=== PATIENT | female | born 1995 | race African-American/Black ===

== ENCOUNTER 2023-07-17 22:56 | Emergency (ER) | payer OTHER, MEDICAID, SELFPAY ==
--- NOTE | ~2023-07-17 | XR_ITS ---
EXAMINATION: XR foot LT min 3V DATE: 07/17/2023 23:22 INDICATION: Pain across the toes of the left foot after being pinned with a forklift TECHNIQUE: Dorsoplantar, two oblique and lateral views of the left foot were obtained. COMPARISON: None. FINDINGS: There is bandaging material about the dose of the left foot. Age-indeterminate mildly displaced small fracture fragment at the medial side of the tuft of the left first distal phalanx. Bone alignment is otherwise normal. No other fractures identified. Joint spaces are normal. IMPRESSION: 1. Age-indeterminate mildly displaced fracture at the medial side of the tuft of the left great toe. If this is acute and there is an associated nailbed injury this would be considered equivalent of an open/compound fracture at increased risk of infection. Reviewed, dictated and finalized at location A. [facility] IMPRESSION: 1. Age-indeterminate mildly displaced fracture at the medial side of the tuft o f the left great toe. If this is acute and there is an associated nailbed injur y this would be considered equivalent of an open/compound fracture at increased risk of infection.
[2023-07-17 22:56] VITALS: BP 157/105; PULSE 85; O2SAT 100
[2023-07-17 22:58] VITALS: BP 152/105; PULSE 90; RESP 20; TEMP 36.8; O2SAT 100
[2023-07-17 23:15] VITALS: BP 160/102; PULSE 94; O2SAT 100
[2023-07-17] MEDS: TETANUS,DIPHTHERIA,AC PERTUSSIS ADULT (0.5 ML) BOOSTRIX IM (23:18)
[2023-07-17] MEDS: HYDROmorphone HCL INJ (*CRX) 1 MG/ML SYR IV PUSH ×2 (23:18→23:58)
[2023-07-17] MEDS: ceFAZolin 2 GM/D5W 50 ML 2 GM/50 ML BAG IVPB (23:19)
--- NOTE | 2023-07-17 23:22 | PC.NURSE ---
This RN assumed care of patient. This RN took patient report from VIRAJ Huerta.
[2023-07-17 23:27] LABS: Basophils Percent Auto 0.7 % (0.2-1.2); Eosinophils Percent Auto 0.7 % (0-4.4); Hemoglobin 11.5 g/dL (12.0-15.0); Immature Granulocyte Absolute 0.01 K/mm3 (0.00-0.031); Immature Granulocyte Percent A 0.2 % (0-0.5); Lymphocytes Absolute Auto 2.03 K/mm3 (0.9-3.2); Lymphocytes Percent Auto 46.9 % (18.3-44.2); Mean Corpuscular HGB Conc 31.1 g/dl (32-36); Mean Corpuscular Hemoglobin 27.4 pg (26-34); Mean Corpuscular Volume 88.3 fl (80-100); Mean Platelet Volume 9.4 fl (7.4-10.4); Monocytes Absolute Auto 0.3 K/mm3 (0.1-0.6); Monocytes Percent Auto 6.5 % (2.6-8.5); Platelet Count Result 198 k/mm3 (150-375); Red Blood Count 4.19 M/mm3 (4.2-5.4); White Blood Count 4.3 K/mm3 (4.5-10.0)
[2023-07-17 23:48] VITALS: BP 141/94; PULSE 67; O2SAT 100
--- NOTE | 2023-07-18 00:16 | ED.GENADULT ---
HPI - General Adult General Chief complaint: Extremity Problem,Nontraumatic Stated complaint: foot injury Time Seen by Provider: 07/17/23 23:06 History of Present Illness HPI narrative: patient 28-year-old female who presents emerged from with chief complaint of left foot injury. 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 Related Data Allergies Allergy/AdvReac Type Severity Reaction Status Date / Time Sulfa (Sulfonamide AdvReac Rash Verified 07/17/23 23:11 Antibiotics) Review of Systems Review of Systems: A 10 system review of systems was completed on the patient and is negative except for what is stated in the HPI. Nursing and ancillary documentation was reviewed. Exam Narrative: GENERAL: Well-appearing, well-nourished, and in no acute distress. HEAD: Normocephalic, atraumatic. EYES: PERRLA and EOMI. ENT: Nares clear, no rhinorrhea or epistaxis. Mucous membranes moist. NECK: Supple. CHEST: Clear to auscultation. No respiratory distress. HEART: Regular rate and rhythm. No murmur heard. Normal peripheral pulses. ABDOMEN: Soft, nontender, nondistended, normal active bowel sounds. EXTREMITIES: Normal range of motion. No edema. SKIN: Warm, dry, no rash. Multiple lacerations at the base of the 1st 2nd 3rd and 4th digit of the left foot there is a laceration to the webspace between the 1st and 2nd digit and 2nd and 3rd digit NEURO: No focal deficits. Alert and oriented x3. PSYCH: Normal mood and affect. Course Vital Signs Vital signs: Vital Signs Pulse Rate 85 07/17/23 22:56 Blood Pressure 157/105 H 07/17/23 22:56 Pulse Oximetry 100 07/17/23 22:56 Temperature 36.8 C 07/17/23 22:58 Pulse Rate 67 07/17/23 23:48 Respiratory Rate 20 07/17/23 22:58 Blood Pressure 141/94 H 07/17/23 23:48 Pulse Oximetry 100 07/17/23 23:48 Oxygen Delivery Room Air 07/17/23 22:58 Medical Decision Making MDM Narrative Medical decision making narrative: definitive diagnosis includes open fracture, contusion, crush injury plain film x-rays of the left foot showed a tuft fracture of the 1st phalanx patient's pain was controlled emergency department tetanus was updated the patient was given 2 g of Ancef Vital Signs Vital Signs: Vital Signs Pulse Rate 85 07/17/23 22:56 Blood Pressure 157/105 H 07/17/23 22:56 Pulse Oximetry 100 07/17/23 22:56 Temperature 36.8 C 07/17/23 22:58 Pulse Rate 67 07/17/23 23:48 Respiratory Rate 20 07/17/23 22:58 Blood Pressure 141/94 H 07/17/23 23:48 Pulse Oximetry 100 07/17/23 23:48 Oxygen Delivery Room Air 07/17/23 22:58 Lab Data 07/17/23 23:21 07/17/23 23:21 Labs: Lab Results 07/17/23 Range/Units 23:21 WBC 4.3 L (4.5-10.0) K/mm3 RBC 4.19 L (4.2-5.4) M/mm3 Hgb 11.5 L (12.0-15.0) g/dL Hct 37.0 (37.0-47.0) % MCV 88.3 (80-100) fl MCH 27.4 (26-34) pg MCHC 31.1 L (32-36) g/dl RDW 13.0 (11.5-14.5) % Plt Count 198 (150-375) k/mm3 MPV 9.4 (7.4-10.4) fl Immature Gran % (Auto) 0.2 (0-0.5) % Neut % (Auto) 45.0 L (45.5-73.1) % Lymph % (Auto) 46.9 H (18.3-44.2) % [place] % (Auto) 6.5 (2.6-8.5) % Eos % (Auto) 0.7 (0-4.4) % Baso % (Auto) 0.7 (0.2-1.2) % Lymph # (Auto) 2.03 (0.9-3.2) K/mm3 [place] # (Auto) 0.3 (0.1-0.6) K/mm3 Eos # (Auto) 0.0 (0-0.3) K/mm3 Baso # (Auto) 0.0 (0.0-0.1) K/mm3 Abs Immat Gran (auto) 0.01 (0.00-0.031) K/mm3 Absolute Neuts (auto) 2.0 (1.3-6.7) K/mm3 Absolute Nucleated RBC 0.0 (0.0-0.012) K/mm3 Nucleated RBC % 0.0 (0.0-0.2) % Sodium 138 (137-145) mmol/L Potassium 4.3 (3.4-5.0) mmol
[2023-07-18 00:26] LABS: Alanine Aminotransferase 16 U/L (6-35); Albumin Level 4.3 g/dL (3.5-5.1); Alkaline Phosphatase 38 U/L (38-126); Anion Gap 11 mmol/L (8-16); Aspartate Amino Transferase 32 U/L (14-36); Bilirubin,Total 0.6 mg/dL (0.2-1.3); Blood Urea Nitrogen 11 mg/dL (7-17); Calcium 8.8 mg/dL (8.4-10.2); Carbon Dioxide 23 mmol/L (22-30); Chloride 104 mmol/L (98-107); Estimated CRCL calculation 129 ml/min; Estimated Glomerular Filt Rate > 60; Glucose 95 mg/dL (65-110); Potassium 4.3 mmol/L (3.4-5.0); Sodium 138 mmol/L (137-145)
[2023-07-18 01:30] VITALS: BP 121/58; PULSE 75; O2SAT 97
[2023-07-18] MEDS: ONDANSETRON INJ 4 MG/2 ML VIAL IV PUSH (01:31)
[2023-07-18 01:45] VITALS: BP 109/66; PULSE 83; O2SAT 97
[2023-07-18 02:00] VITALS: BP 116/58; PULSE 83; O2SAT 97
[2023-07-18 03:09] VITALS: BP 143/102; PULSE 68; O2SAT 100
[2023-07-18] MEDS: HYDROmorphone HCL INJ (*CRX) 1 MG/ML SYR IV PUSH (03:34)
[2023-07-18 03:48] VITALS: BP 122/85; PULSE 69; O2SAT 100
== END 2023-07-18 04:10 | disposition short-term general hospital (02) ==
PROVIDERS: Emergency Provider Emergency Medicine
DX: S97.82XA Crushing injury of left foot, initial encounter (principal); Z23 Encounter for immunization; W31.82XA Contact with other commercial machinery, initial encounter
CPT/HCPCS: 36415; 73630; 80053; 85025; 90471; 90715; 96365; 96374; 96375; 96376; 99285; J0690; J1170; J2405